=== PATIENT | female | born 1945 | race African-American/Black ===

== ENCOUNTER 2019-05-18 19:03 | Observation (INO) | payer MEDICARE, MEDICAID ==
[2019-05-18 19:28] VITALS: BMI 47.7
[2019-05-18] MEDS ORDERED: Ondansetron PF 4 MG/2 ML Vial IVP PRN (19:31)
[2019-05-18] MEDS ORDERED: Ondansetron ODT 4 MG TAB SL PRN (19:31)
[2019-05-18] MEDS ORDERED: Acetaminophen 325 MG TAB PO PRN (19:31)
--- NOTE | 2019-05-18 20:11 | PDOC.FPRHP ---
- Allergies/Adverse Reactions Allergies Allergy/AdvReac Type Severity Reaction Status Date / Time prednisone Allergy Intermediate Verified 06/26/15 03:13 aspirin Allergy Verified 06/26/15 03:13 rivaroxaban [From Xarelto] Allergy Verified 05/18/19 19:35 - Home Medications Medication Instructions Recorded Confirmed Type Metoprolol Succinate 25 mg PO DAILY 06/29/15 06/29/15 History Simvastatin 20 mg PO QPM 06/29/15 06/29/15 History Rivaroxaban [Xarelto] 15 mg PO BID #0 tab 06/30/15 Rx Rivaroxaban [Xarelto] 20 mg PO DAILY #0 tablet 06/30/15 Rx - History PMHx: PSHx: FHx: Social: - Vital signs BP: [] HR: [] RR: [] Tmax: [] Pox: []% on [] Wt: [] FMR H&P: Upper Level - Plan Date/Time: 05/18/192010 I, [], have evaluated this patient and agree with findings/plan as outlined by digital media intern resident. Pertinent changes/additions are listed here.
[2019-05-18] MEDS ORDERED: medroxyPROGESTERone Acetate 5 MG TAB PO SCH (21:00)
--- NOTE | 2019-05-18 21:55 | PDOC.FPRHP ---
- History of Present Illness Chief Complaint: vaginal bleeding History of Present Illness: 73 y/o F who presents from [facility] with vaginal bleeding. She cannot recall how long this has been going on. in [facility] ER she had a TVUS that revealed a thickened endometrial stripe and she was subsequently admitted here. Currently she feels fine, has no complaints, and I had to remind her that she had vaginal bleeding. [facility] is limited by her, I suspect dementia. - Allergies/Adverse Reactions Allergies Allergy/AdvReac Type Severity Reaction Status Date / Time prednisone Allergy Intermediate Verified 06/26/15 03:13 aspirin Allergy Verified 06/26/15 03:13 rivaroxaban [From Xarelto] Allergy Verified 05/18/19 19:35 - Home Medications Medication Instructions Recorded Confirmed Type Metoprolol Succinate 25 mg PO DAILY 06/29/15 06/29/15 History Simvastatin 20 mg PO QPM 06/29/15 06/29/15 History Rivaroxaban [Xarelto] 15 mg PO BID #0 tab 06/30/15 Rx Rivaroxaban [Xarelto] 20 mg PO DAILY #0 tablet 06/30/15 Rx - History PMHx: HTN, PE, morbid obesity, dyslipidemia, diastolic dysfunction, pulmonary hypertension PSHx: unable to complete FHx: does not recall Social: denies [employer], lives at [facility] - Review of Systems ROS unobtainable: due to mental status - Vital signs BP: 137/90 HR: 79 RR: 20 Tmax: 99 Pox: 96% on RA Wt: 126.28 kg - Physical Exam Constitutional: NAD, well developed HEENT: normocephalic and atraumatic, other (medially deviated left eye, no conj injection) Neck: supple, FROM Chest: no-tender to palpation Heart: RRR, no murmurs/rubs/gallops Lungs: CTAB, no respiratory distress, no wheezing Abdomen: soft, non-tender, other (obese) Musculoskeletal: normal structure, normal tone Neurological: no focal deficit, CN II-XII intact, normal sensation Skin: no rash/lesions, good turgor Heme/Lymphatic: no purpura, no petechia Psychiatric: normal mood and affect (very polite) FMR H&P: Results - Labs Lab results: labs reviewed from [facility] - Radiology Interpretation US - abdomen Status: report reviewed by me (Uterus 10x6x5 with 1.8 cm stripe suggestive of endometrial CA in postmenopausal woman) FMR H&P: A/P - Problem List (1) Postmenopausal bleeding Current Visit: Yes Status: Acute Code(s): N95.0 - POSTMENOPAUSAL BLEEDING (2) Endometrial thickening on ultrasound Current Visit: Yes Status: Acute Code(s): R93.89 - ABNORMAL FINDINGS ON DX IMAGING OF OTH BODY STRUCTURES (3) Hx of snf use of blood thinners Current Visit: Yes Status: Acute Code(s): Z92.29 - PERSONAL HISTORY OF OTHER DRUG THERAPY (4) Bilateral pulmonary embolism Current Visit: No Status: Acute Code(s): I26.99 - OTHER PULMONARY EMBOLISM WITHOUT ACUTE COR PULMONALE (5) Dyslipidemia Current Visit: No Status: Chronic Code(s): E78.5 - HYPERLIPIDEMIA, UNSPECIFIED (6) Hypertension Current Visit: No Status: Chronic Code(s): I10 - ESSENTIAL (PRIMARY) HYPERTENSION (7) Morbid obesity Current Visit: No Status: Chronic Code(s): E66.01 - MORBID (SEVERE) OBESITY DUE TO EXCESS CALORIES - 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 Gutiérrez as reported by ERMD -hold NOAC for now HTN/dyslipidemia -restart home meds DVT ppx with SCDs GI ppx with diet I discussed the need for an EMB, including r/b/a and she was able to provide consent. FMR H&P: Upper Level - Plan Date/Time: 05/18/19 9492 I, [], have evaluated this patient and agree with findings/plan as outlined by culinary internship resident. Pertinent changes/additions are listed here.
[2019-05-18] MEDS: Sodium Chloride 0.9% 1,000 ML IV SCH (21:59)
[2019-05-19 00:19] LABS: Hemoglobin 12.8 g/dL (12.0-16.0)
[2019-05-19] MEDS ORDERED: Acetaminophen 325 MG TAB PO PRN (02:45)
[2019-05-19] MEDS: Sodium Chloride 0.9% 1,000 ML IV SCH (04:23)
--- NOTE | 2019-05-19 05:41 | PDOC.FM ---
- Subjective Subjective: Pt doing well this morning, unsure of specifics but easily reoriented. States she thinks vaginal bleeding as stopped. No acute events overnight. Endorses chronic dry cough. Denies any CP, SOB, n/v, d/c, dizziness/lightheadedness, fever/chills. - Objective MAR Reviewed: Yes Vital Signs & Weight: Vital Signs (12 hours) Temp Pulse Resp BP Pulse Ox 05/19/19 04:56 98.4 F 82 20 143/85 H 94 L 05/19/19 01:01 98.3 F 76 18 133/81 97 05/18/19 19:26 99 F 79 20 137/90 96 Weight Weight 126.28 kg Result Diagrams: 05/19/19 08:10 05/19/19 08:10 Phys Exam - Physical Examination Constitutional: NAD (resting comfortably, obese) HEENT: PERRLA left ambylopia Neck: supple Respiratory: no wheezing, no rales, no rhonchi, clear to auscultation bilateral chronic dry cough Cardiovascular: RRR, no significant murmur, no rub Gastrointestinal: soft, non-tender, no distention, positive bowel sounds Musculoskeletal: no edema Neurological: moves all 4 limbs Psychiatric: A&O x 3 (and to situation) Dx/Plan (1) Endometrial thickening on ultrasound Code(s): R93.89 - ABNORMAL FINDINGS ON DX IMAGING OF OTH BODY STRUCTURES Status: Acute (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 VSS and Hb 12.8. AM Labs pending. - TVUS with thickened endometrial strip - Plan for EMBx this AM - Cont provera per Dr. 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 Will likely need close OP f/u. Anticipate hospitalization < 48 hrs pending clinical course. Addendum - Attending - Attending Attestation Date/Time: 05/19/19 1241 I personally evaluated the patient and discussed the management with the team. I agree with the History, Examination, Assessment and Plan documented above with any addition or exceptions noted below. Await managed services sales consultant consultation.
[2019-05-19] MEDS: Guaifenesin DM 100-10/5 ML UDCUP PO PRN ×2 (06:28→15:58)
[2019-05-19] MEDS: Benzonatate 100 MG CAP PO PRN ×2 (06:28→15:58)
[2019-05-19 08:46] LABS: Anion Gap 11 mmol/L (10-20); BUN (Urea Nitrogen) 8 mg/dL (9.8-20.1); Calc. Creatinine Clearance 105 mL/min (70-130); Calcium 8.8 mg/dL (7.8-10.44); Carbon Dioxide 29 mmol/L (23-31); Chloride 103 mmol/L (98-107); Estimated GFR-MDRD 70; Glucose 93 mg/dL (83-110); Potassium 3.8 mmol/L (3.5-5.1); Sodium 139 mmol/L (136-145)
[2019-05-19 08:47] LABS: #Eosinphils 0.4 thou/uL (0.0-0.7); #Lymphocytes 1.5 thou/uL (1.20-3.40); #Monocytes 0.6 thou/uL (0.11-0.59); #Neutrophils 4.8 thou/uL (1.40-6.50); %Basophils 0.1 % (0.0-1.0); %Lymphocytes 20.6 % (21.0-51.0); %Monocytes 8.4 % (0.0-10.0); %Neutrophils 64.9 % (42.0-75.0); Hemoglobin 12.5 g/dL (12.0-16.0); Mean Corpuscular HGB CONC 30.9 g/dL (32.0-36.0); Mean Corpuscular Hemoglobin 29.3 pg (27.0-31.0); Mean Platelet Volume 9.3 fL (7.4-10.4); Platelet Count 225 thou/uL (130-400); RBC Distribution Width 12.2 % (11.5-14.5); Red Blood Cell (RBC) Count 4.28 mill/uL (4.20-5.40); White Blood Cell (WBC) Count 7.3 thou/uL (4.8-10.8)
[2019-05-19] MEDS ORDERED: DULoxetine 60 MG CAP PO SCH (09:00)
[2019-05-19] MEDS ORDERED: Hydrochlorothiazide 25 MG TAB PO SCH (09:00)
[2019-05-19] MEDS ORDERED: medroxyPROGESTERone Acetate 5 MG TAB PO SCH (09:00)
[2019-05-19] MEDS ORDERED: Simvastatin 5 MG TAB PO SCH (09:00)
[2019-05-19] MEDS ORDERED: Donepezil HCl 10 MG TAB PO SCH (09:00)
[2019-05-19] MEDS ORDERED: Multivit, Therapeutic 1 TAB PO SCH (09:00)
[2019-05-19] MEDS ORDERED: Silver Nitrate Application 1 EACH ONE (11:39)
[2019-05-19 19:48] VITALS: BP 101/58; TEMP 98.6
--- NOTE | 2019-05-19 22:42 | CON ---
DATE OF CONSULTATION: CHIEF COMPLAINT: Vaginal bleeding. HISTORY OF PRESENT ILLNESS: This is a 73-year-old female, who came into the ER last night with concern for heavy vaginal bleeding and was found on ultrasound that she had a 10 x 6 x 5 uterus with a 1.8 cm endometrial stripe that is suggestive of endometrial cancer in postmenopausal women. She was then sent over for further evaluation. The primary team, which she was admitted to tried few times overnight to get an endometrial biopsy, but were unsuccessful, so at this time, we were consulted. The patient cannot provide the most accurate history as she has a history of underlying Alzheimer's dementia and her mental state kind of waxes and wanes. She seemed to be pretty alert today, reported bleeding and normal like her regular period. PAST MEDICAL HISTORY: Includes normocytic anemia, Alzheimer's dementia, hyperlipidemia, OA, depression, hypertension, anxiety, heart failure with preserved ejection fraction, and hypertension. PAST SURGICAL HISTORY: Unable to be obtained due to the patient's underlying dementia. FAMILY HISTORY: The patient does not recall. SOCIAL HISTORY: The patient lives at [facility]. Denies any smoking. Denies any alcohol use. Denies any history of illicit drug use. REVIEW OF SYSTEMS: The patient's review of systems is unable to obtain due to altered mental status. HOME MEDICATIONS: Include; 1. Metoprolol. 2. Simvastatin. 3. Xarelto. ALLERGIES: INCLUDE PREDNISONE, ASPIRIN, AND XARELTO. PHYSICAL EXAMINATION: VITAL SIGNS: Temperature 98.7, pulse is 68, respirations 17, O2 sats 97% on room air, blood pressure is 128/72. GENERAL: The patient is alert and oriented x2 this morning. She does report some bleeding. She does not appear to be in any acute distress. HEENT: Normocephalic and atraumatic. She does have a medially deviated left eye and has no conjunctivitis. NECK: Supple. Free range of motion. HEART: Regular rate and rhythm. No murmurs, rubs, or gallops. LUNGS: Clear to auscultation bilaterally. No respiratory distress. No wheezing. ABDOMEN: Soft, nontender. She is obese, but there are no masses or hernias noted. MUSCULOSKELETAL: Normal structure. Normal tone. Has free range of motion in all extremities bilaterally. NEUROLOGIC: No focal deficit noted. Has normal sensation and normal strength at this time. SKIN: No rash or lesions. Good turgor. HEME/LYMPH: No purpura. No petechiae. PSYCHIATRIC: The patient has normal mood and affect, but again she has underlying Alzheimer's dementia and is not quite aware of the current situation. LEAD NITRATE PROCESSOR: A speculum vaginal exam was performed to perform the endometrial biopsy. It would be noted that there was a large amount of pooling of blood and multiple blood clots during endometrial biopsy. ENDOMETRIAL BIOPSY: Verbal consent was obtained and a speculum was placed in the vagina. The cervix was visualized and grasped with a single toothed tenaculum. An endometrial pipelle was advanced to the fundus and sounded to about 8cm. The sampling was very difficult but three passes were made. A sample was collected but was primarily clot but a small amount of tissue was noted. The patient tolerated the procedure well without complications. LABORATORY DATA: White blood cell count 7.3, hemoglobin 12.5, hematocrit 40.6, platelet count 225. Chemistry; sodium was 139, potassium 3.8, chloride 103, carbon dioxide 29, anion gap 11, BUN 8, creatinine 0.94, GFR 70, glucose 93, calcium 8.8. I reviewed the ultrasound report from [facility] and it again showed a uterus 10 x 6 x 5 with 1.8 cm stripe suggestive of endometrial carcinoma in postmenopausal woman. ASSESSMENT: Abnormal uterine bleeding with concern for underlying cancer. PLAN: At this time, the patient's hemoglobin was reported to be 11 the night prior during her admission, and then this morning was up to 12. She did have some signs of active bleeding, but it was not heavy. I advised that she be watched for few more hours throughout the day. If she does not have any excessive bleeding and vital signs remained stable, we believe patient is safe to be discharged. She can follow up with [facility] in the next few days and we will await path results from the endometrial biopsy. Standard postprocedure care. Again advised to watch patient for few more hours and then can be discharged back to half-way on Provera from FINANCIAL SALES CONSULTANT hospitalist standpoint and follow up outpatient for further treatment of ongoing uterine disease. Job ID: [id number] MTDD
--- NOTE | 2019-05-20 08:16 | DIS ---
DATE OF ADMISSION: 05/18/2019 DATE OF DISCHARGE: 05/19/2019 RESIDENT: Laron Castellanos MD ADMITTING ATTENDING: Gatito Mancera MD DSICHARGE ATTENDING: Gatito Mancera MD CONSULTS: Gynecology, Dr. Hartley. PROCEDURES: 1. Transvaginal ultrasound at outside facility demonstrating thickened endometrial stripe. 2. Endometrial biopsy performed on 05/19/2019. PRIMARY DIAGNOSES: Postmenopausal bleeding with thickened endometrial stripe. SECONDARY DIAGNOSES: 1. Hypertension. 2. Hyperlipidemia. 3. Dementia. 4. Chronic cough. 5. History of pulmonary emboli. DISCHARGE MEDICATIONS: 1. Provera 20 mg p.o. b.i.d. 2. Toprol-XL 25 mg p.o. daily. 3. Aricept 10 mg p.o. daily. 4. Lactulose 15 mL p.o. daily p.r.n. 5. Lovastatin 20 mg p.o. daily. 6. Multivitamin one tablet p.o. daily. 7. Cymbalta 60 mg p.o. daily. 8. Hydrochlorothiazide 25 mg p.o. daily. 9. Namenda 10 mg p.o. daily. 10. Tylenol 325 mg two tablets p.o. q.6 hours p.r.n. 11. Robitussin DM 10 mL p.o. q.6 hours p.r.n. DISCONTINUED MEDICATIONS: Xarelto to be held until followup with [facility] early next week. HISTORY OF PRESENT ILLNESS AND HOSPITAL COURSE: The patient is a 73-year-old female, who presented from half-way with complaint of vaginal bleeding. The patient does have underlying dementia. This seems to wax and wane, and was a poor historian of her current symptoms. She initially presented to [facility], where she was found to have a thickened endometrial stripe on transvaginal ultrasound result and was optimally admitted here for further evaluation and management. The patient is on Xarelto for previous PEs, this was held during hospitalization. The patient's hemoglobin was trended and stable at 12. OB hospitalist was consulted, who recommended high dose of Depo-Provera as well as perform an endometrial biopsy. Endometrial biopsy was performed and the patient tolerated this well. Records were reviewed and transvaginal ultrasound demonstrated uterus that was 10 x 6 x 5 with a 1.8 cm endometrial stripe suggestive of endometrial cancer in postmenopausal woman. The patient will have a close followup appointment with [facility] within the next few days. For the patient's current medical conditions, her home medications were continued. At the time of discharge, the patient was doing well. Vaginal bleeding had tapered off somewhat. The patient's hemoglobin remained stable and the patient's vital signs were also stable. Discharge plan was discussed with the patient. She voiced agreement and understanding of this plan and instructions were given in the half-way for appropriate followup. The patient was discharged back to the half-way. DISPOSITION: Stable. DISCHARGE INSTRUCTIONS: 1. Location: long-term. 2. Diet: Heart healthy. 3. Activity: As tolerated. 4. Followup: The patient is to follow up with [facility] within the next few days as well as her primary care physician within 1 week. Job ID: [id number]
== END 2019-05-19 20:08 ==
LOC: T4-A 19:03 → INTOOBSV 19:03
PROVIDERS: ADMIT Emergency Medicine; ATTEND Emergency Medicine
PROC: 0UDB7ZX Extraction of Endometrium, Via Natural or Artificial Opening, Diagnostic (ICD-10-PCS; principal; 2019-05-19)
DX: N95.0 Postmenopausal bleeding (principal); R93.89 Abnormal findings on diagnostic imaging of other specified body structures; I11.0 Hypertensive heart disease with heart failure; I50.30 Unspecified diastolic (congestive) heart failure; E78.5 Hyperlipidemia, unspecified; G30.9 Alzheimer's disease, unspecified; F02.80 Dementia in other diseases classified elsewhere, unspecified severity, without behavioral disturbance, psychotic disturbance, mood disturbance, and anxiety; R05 Cough; I27.20 Pulmonary hypertension, unspecified; M19.90 Unspecified osteoarthritis, unspecified site; F32.9 Major depressive disorder, single episode, unspecified; F41.9 Anxiety disorder, unspecified; E66.01 Morbid (severe) obesity due to excess calories; Z68.42 Body mass index [BMI] 45.0-49.9, adult; Z86.711 Personal history of pulmonary embolism; Z79.899 Other long term (current) drug therapy; Z88.8 Allergy status to other drugs, medicaments and biological substances
CPT/HCPCS: 58100; 80048; 85014; 85018; 85025; 88305; 96360; 96361 ×2; G0378 ×2; 36415; 36416

== ENCOUNTER 2023-12-27 20:16 | Inpatient (IN) | payer MEDICARE, MEDICAID ==
[2023-12-27] MEDS ORDERED: Magnesium 2 GM/50 ML BAG (IN WATER) ONE (21:29)
[2023-12-27 21:59] LABS: ALT (SGPT) 133 U/L (8-55); AST (SGOT) 443 U/L (5-34); Albumin 2.5 g/dL (3.4-4.8); Alkaline Phosphatase 194 U/L (40-110); Anion Gap 23 mmol/L (10-20); BUN (Urea Nitrogen) 61 mg/dL (9.8-20.1); Bilirubin, Total 6.2 mg/dL (0.2-1.2); Calc. Creatinine Clearance 0 mL/min (70-130); Calcium 8.3 mg/dL (7.8-10.44); Carbon Dioxide 18 mmol/L (23-31); Chloride 100 mmol/L (98-107); Estimated GFR 8; Globulin 3.7 g/dL (2.4-3.5); Glucose 61 mg/dL (83-110); Magnesium 1.9 mg/dL (1.6-2.6); Potassium 4.7 mmol/L (3.5-5.1); Protein, Total 6.2 g/dL (5.8-8.1); Sodium 136 mmol/L (136-145)
[2023-12-27 22:07] LABS: INR-International Normal Ratio 1.4
[2023-12-27 22:08] LABS: Fibrinogen 687 mg/dL (253-463); PTT 24.8 sec (22.9-36.1)
[2023-12-27 22:25] LABS: Anisocytosis SLIGHT = 6-15 cells HPF (0-5); Band 2 % (5-11); Burr Cells MODERATE= 6-15 cells HPF (0-1); Dohle Bodies SLIGHT; Lymphocytes 4 % (21-51); Macrocytosis SLIGHT = 6-15 cells HPF (0-5); Monocytes 3 % (0-10); Neutrophil 91 % (42-75); Platelet Adequacy Comment Platelets Decreased; Poikilocytosis SLIGHT = 6-15 cells HPF (0-5); Polychromasia SLIGHT = 2-3 cells HPF (0-2); Target Cells SLIGHT = 2-5 cells HPF (0-1); Toxic Granulation SLIGHT; Vacuoles SLIGHT
[2023-12-27 22:55] LABS: Hematocrit 41.4 % (36.0-47.0); Mean Corpuscular HGB CONC 31.4 g/dL (32.0-36.0); Mean Corpuscular Hemoglobin 29.8 pg (27.0-31.0); Mean Platelet Volume 11.1 fL (7.4-10.4); Platelet Count 64 10x3/uL (130-400); RBC Distribution Width 14.6 % (11.5-14.5); Red Blood Cell (RBC) Count 4.36 mill/uL (4.20-5.40)
[2023-12-27 23:02] LABS: D-Dimer Test Greater than 20.00 mcg/mL (0.27-0.43)
[2023-12-27] MEDS ORDERED: Piperacillin/Tazobactam 3.375 GM VIAL ONE (23:04)
[2023-12-27] MEDS ORDERED: Sodium Chloride 0.9% 100 ML ONE (23:04)
[2023-12-27 23:11] LABS: Bacteria/HPF 2+ HPF (None Seen); Bilirubin 1+ (Negative); Blood, Urine 3+ (Negative); CAUTI Indications for Culture Pelvic or flank pain; Clarity Extra Turbid (Clear); Glucose, Urine (Dipstick) Normal (Negative); Ketone, Urine Negative (Negative); Leukocyte 500 Leu/uL (Negative); Nitrite Negative (Negative); Protein, Urine (Dipstick) 100 mg/dL (Neg-Trace); RBC/HPF Greater than 50 HPF (0-3); Specific Gravity, Urine 1.015 (1.002-1.036); WBC/HPF Greater than 50 HPF (0-3)
[2023-12-28 00:10] LABS: Actual Bicarbonate (HCO3v) 21.2 mEq/L (22-28); Base Excess -4.8 mEq/L (-2.0 to +3.0); Calcium, Ionized (venous) 0.98 mmol/L (1.16-1.32); Chloride (VBG) 98 mmol/L (98-106); Hematocrit-VBG 40 % (36.0-47.0); Hemoglobin (Hb) 13.7 g/dL (11.7-16.1); Potassium (VBG) 4.33 mmol/L (3.70-5.30); Sodium 136 mmol/L (133-146); pH (venous) 7.315 (7.32-7.43)
[2023-12-28 00:24] LABS: Lactic Acid 2.54 mmol/L (0.5-2.2)
[2023-12-28 00:55] LABS: Troponin I 0.482 ng/mL (< 0.028)
[2023-12-28 03:08] VITALS: BMI 43.6
[2023-12-28] MEDS ORDERED: Vancomycin Dose by Levels Sliding Scale (Wt > 99) FS SCH (03:30)
[2023-12-28] MEDS: Sodium Chloride 0.9% 1,000 ML IV SCH (03:55)
[2023-12-28] MEDS ORDERED: Bisacodyl 10 MG SUPP PR PRN (04:29)
[2023-12-28] MEDS: Dextrose 50% Abboject 50 ML SYRINGE ONE (04:45)
[2023-12-28 05:11] LABS: Hematocrit 36.1 % (36.0-47.0); Mean Corpuscular HGB CONC 33.2 g/dL (32.0-36.0); Mean Corpuscular Hemoglobin 29.5 pg (27.0-31.0); Mean Corpuscular Volume 88.7 fL (78.0-98.0); Mean Platelet Volume 12.7 fL (7.4-10.4); Platelet Count 60 10x3/uL (130-400); RBC Distribution Width 14.3 % (11.5-14.5); Red Blood Cell (RBC) Count 4.07 mill/uL (4.20-5.40)
[2023-12-28 05:14] LABS: ALT (SGPT) 118 U/L (8-55); AST (SGOT) 370 U/L (5-34); Albumin 2.3 g/dL (3.4-4.8); Alkaline Phosphatase 169 U/L (40-110); Anion Gap 18 mmol/L (10-20); BUN (Urea Nitrogen) 65 mg/dL (9.8-20.1); Bilirubin, Total 6.1 mg/dL (0.2-1.2); Calc. Creatinine Clearance 17 mL/min (70-130); Calcium 7.9 mg/dL (7.8-10.44); Carbon Dioxide 22 mmol/L (23-31); Chloride 101 mmol/L (98-107); Estimated GFR 8; Globulin 3.4 g/dL (2.4-3.5); Glucose 67 mg/dL (83-110); Lactic Acid 1.27 mmol/L (0.5-2.2); Potassium 4.2 mmol/L (3.5-5.1); Protein, Total 5.7 g/dL (5.8-8.1); Sodium 137 mmol/L (136-145)
[2023-12-28 05:34] LABS: Troponin I 0.494 ng/mL (< 0.028)
[2023-12-28 06:07] LABS: Anisocytosis SLIGHT = 6-15 cells HPF (0-5); Band 6 % (5-11); Burr Cells SLIGHT = 2-5 cells HPF (0-1); Dohle Bodies SLIGHT; Lymphocytes 1 % (21-51); Microcytosis SLIGHT = 6-15 cells HPF (0-5); Monocytes 3 % (0-10); Neutrophil 90 % (42-75); Ovalocytes SLIGHT = 2-5 cells HPF (0-1); Platelet Adequacy Comment Platelets Decreased; Polychromasia SLIGHT = 2-3 cells HPF (0-2); Target Cells SLIGHT = 2-5 cells HPF (0-1); Toxic Granulation SLIGHT; Vacuoles MODERATE
[2023-12-28] MEDS: Fleet Saline Enema 133 ML BOT PR SCH (07:02)
[2023-12-28] MEDS: Famotidine/PF 20 mg/2ml Vial SLOW IVP SCH (08:06)
[2023-12-28] MEDS: Cefepime 1 GM in Sodium Chloride 0.9% 100 ML IVPB SCH (15:10)
[2023-12-28 16:28] LABS: Creatinine, Urine 47.74 mg/dL (47-110)
[2023-12-28 20:09] LABS: Vancomycin, Trough 19.4 ug/mL
[2023-12-28] MEDS: Vancomycin HCl 750 MG in Sodium Chloride 0.9% 250 ML 250 ML IVPB SCH (22:03)
[2023-12-29 05:21] LABS: #Basophils 0.07 10x3/uL (0.0-0.2); %Basophils 0.5 % (0.0-1.0); %Eosinophils 1.4 % (0.0-10.0); %Lymphocytes 4.6 % (21.0-51.0); %Monocytes 5.4 % (0.0-10.0); %Neutrophils 84.9 % (42.0-75.0); Hematocrit 37.7 % (36.0-47.0); Hemoglobin 13.1 g/dL (12.0-16.0); Mean Corpuscular HGB CONC 34.7 g/dL (32.0-36.0); Mean Corpuscular Hemoglobin 29.8 pg (27.0-31.0); Mean Corpuscular Volume 85.9 fL (78.0-98.0); Mean Platelet Volume 13.2 fL (7.4-10.4); Platelet Count 58 10x3/uL (130-400); RBC Distribution Width 14.4 % (11.5-14.5); Red Blood Cell (RBC) Count 4.39 mill/uL (4.20-5.40)
[2023-12-29 05:33] LABS: ALT (SGPT) 101 U/L (8-55); AST (SGOT) 225 U/L (5-34); Alkaline Phosphatase 177 U/L (40-110); Anion Gap 16 mmol/L (10-20); BUN (Urea Nitrogen) 73 mg/dL (9.8-20.1); Calc. Creatinine Clearance 16 mL/min (70-130); Calcium 8.3 mg/dL (7.8-10.44); Carbon Dioxide 21 mmol/L (23-31); Chloride 105 mmol/L (98-107); Estimated GFR 7; Globulin 4.4 g/dL (2.4-3.5); Glucose 80 mg/dL (83-110); Potassium 3.8 mmol/L (3.5-5.1); Protein, Total 6.4 g/dL (5.8-8.1); Sodium 138 mmol/L (136-145)
[2023-12-29 15:10] LABS: ALT (SGPT) 85 U/L (8-55); AST (SGOT) 163 U/L (5-34); Albumin 1.8 g/dL (3.4-4.8); Alkaline Phosphatase 161 U/L (40-110); Anion Gap 16 mmol/L (10-20); BUN (Urea Nitrogen) 76 mg/dL (9.8-20.1); Bilirubin, Direct 4.1 mg/dL (0.1-0.3); Bilirubin, Total 5.1 mg/dL (0.2-1.2); Calc. Creatinine Clearance 16 mL/min (70-130); Carbon Dioxide 21 mmol/L (23-31); Chloride 107 mmol/L (98-107); Estimated GFR 8; Globulin 4.1 g/dL (2.4-3.5); Glucose 85 mg/dL (83-110); Potassium 3.9 mmol/L (3.5-5.1); Protein, Total 5.9 g/dL (5.8-8.1); Sodium 140 mmol/L (136-145)
[2023-12-30 05:40] LABS: ALT (SGPT) 71 U/L (8-55); AST (SGOT) 115 U/L (5-34); Albumin 1.7 g/dL (3.4-4.8); Alkaline Phosphatase 160 U/L (40-110); Anion Gap 17 mmol/L (10-20); BUN (Urea Nitrogen) 73 mg/dL (9.8-20.1); Bilirubin, Total 4.2 mg/dL (0.2-1.2); Calc. Creatinine Clearance 17 mL/min (70-130); Calcium 7.5 mg/dL (7.8-10.44); Carbon Dioxide 17 mmol/L (23-31); Chloride 112 mmol/L (98-107); Estimated GFR 8; Globulin 3.5 g/dL (2.4-3.5); Glucose 85 mg/dL (83-110); Potassium 4.8 mmol/L (3.5-5.1); Protein, Total 5.2 g/dL (5.8-8.1); Sodium 141 mmol/L (136-145)
[2023-12-30 06:44] LABS: Hematocrit 35.9 % (36.0-47.0); Mean Corpuscular HGB CONC 33.4 g/dL (32.0-36.0); Mean Corpuscular Hemoglobin 29.2 pg (27.0-31.0); Mean Corpuscular Volume 87.3 fL (78.0-98.0); Mean Platelet Volume 11.3 fL (7.4-10.4); Platelet Count 53 10x3/uL (130-400); RBC Distribution Width 14.5 % (11.5-14.5); Red Blood Cell (RBC) Count 4.11 mill/uL (4.20-5.40)
[2023-12-30 08:11] LABS: Band 5 % (5-11); Eosinophils 3 % (0-10); Lymphocytes 6 % (21-51); Monocytes 5 % (0-10); Neutrophil 78 % (42-75); Nucleated RBC (Manual Ct) 1 % (0); Platelet Adequacy Comment Significant Decrease; Poikilocytosis MODERATE=16-30 cells HPF (0-5); Reactive Lymphocytes 3 % (0-10)
[2023-12-30] MEDS: Albumin 25% 25 GM (100 mL) BOT IVPB SCH (12:13)
[2023-12-30 12:59] LABS: ANA Symphony (Qualitative) Negative (Negative); ANA Symphony (Quantitative) 0.4 Ratio (< 0.7 Negative); dsDNA IgG Antibody 2.5 IU/mL (<10 Negative)
[2023-12-30] MEDS ORDERED: Dextrose 5% in Water 1,000 ML IV PRN (15:00)
[2023-12-30] MEDS ORDERED: Dextrose 50% Abboject 50 ML SYRINGE SLOW IVP PRN (15:00)
[2023-12-30] MEDS ORDERED: Glucagon 1 MG/ML KIT IM PRN (15:00)
[2023-12-30 18:28] LABS: Anion Gap 17 mmol/L (10-20); BUN (Urea Nitrogen) 71 mg/dL (9.8-20.1); Calc. Creatinine Clearance 18 mL/min (70-130); Calcium 8.3 mg/dL (7.8-10.44); Carbon Dioxide 16 mmol/L (23-31); Chloride 111 mmol/L (98-107); Estimated GFR 9; Glucose 66 mg/dL (83-110); Potassium 5.2 mmol/L (3.5-5.1); Sodium 139 mmol/L (136-145)
[2023-12-31 06:13] LABS: Hematocrit 32.1 % (36.0-47.0); Hemoglobin 11.3 g/dL (12.0-16.0); Mean Corpuscular HGB CONC 35.2 g/dL (32.0-36.0); Mean Corpuscular Hemoglobin 29.4 pg (27.0-31.0); Mean Corpuscular Volume 83.6 fL (78.0-98.0); Mean Platelet Volume 12.6 fL (7.4-10.4); Platelet Count 65 10x3/uL (130-400); RBC Distribution Width 14.6 % (11.5-14.5); Red Blood Cell (RBC) Count 3.84 mill/uL (4.20-5.40)
[2023-12-31 06:40] LABS: Band 7 % (5-11); Burr Cells SLIGHT = 2-5 cells HPF (0-1); Eosinophils 3 % (0-10); Large Platelets 6.9 % (0-5); Lymphocytes 2 % (21-51); Monocytes 5 % (0-10); Myelocyte 2 % (0-0); Neutrophil 81 % (42-75); Nucleated RBC (Manual Ct) 1 % (0); Platelet Adequacy Comment Platelets Decreased; Smudge Cells 3.9 %; Target Cells SLIGHT = 2-5 cells HPF (0-1)
[2023-12-31 09:02] LABS: ALT (SGPT) 40 U/L (8-55); AST (SGOT) 51 U/L (5-34); Albumin 2.5 g/dL (3.4-4.8); Alkaline Phosphatase 125 U/L (40-110); Anion Gap 16 mmol/L (10-20); BUN (Urea Nitrogen) 71 mg/dL (9.8-20.1); Bilirubin, Total 3.7 mg/dL (0.2-1.2); Calc. Creatinine Clearance 19 mL/min (70-130); Calcium 8.4 mg/dL (7.8-10.44); Carbon Dioxide 17 mmol/L (23-31); Chloride 114 mmol/L (98-107); Estimated GFR 9; Globulin 3.1 g/dL (2.4-3.5); Glucose 75 mg/dL (83-110); Protein, Total 5.6 g/dL (5.8-8.1); Sodium 143 mmol/L (136-145)
[2023-12-31] MEDS: Sodium Bicarbonate 150 MEQ in Dextrose 5% in Water 1,000 ML IV SCH ×2 (10:13→12:08)
[2023-12-31] MEDS: Ondansetron PF 4 MG/2 ML Vial IVP PRN (10:24)
[2023-12-31 10:34] LABS: Anion Gap 15 mmol/L (10-20); BUN (Urea Nitrogen) 70 mg/dL (9.8-20.1); Calc. Creatinine Clearance 19 mL/min (70-130); Calcium 8.5 mg/dL (7.8-10.44); Carbon Dioxide 18 mmol/L (23-31); Chloride 113 mmol/L (98-107); Estimated GFR 9; Glucose 75 mg/dL (83-110); Potassium 3.9 mmol/L (3.5-5.1); Sodium 142 mmol/L (136-145)
[2023-12-31] MEDS: traMADol HCl 50 MG TAB PO PRN (12:06)
[2023-12-31] MEDS: Acetaminophen 325 MG TAB PO PRN (12:09)
[2024-01-01 05:34] LABS: Anion Gap 16 mmol/L (10-20); BUN (Urea Nitrogen) 70 mg/dL (9.8-20.1); Calc. Creatinine Clearance 19 mL/min (70-130); Calcium 8.2 mg/dL (7.8-10.44); Carbon Dioxide 22 mmol/L (23-31); Chloride 111 mmol/L (98-107); Estimated GFR 9; Glucose 98 mg/dL (83-110); Potassium 3.9 mmol/L (3.5-5.1); Sodium 145 mmol/L (136-145)
[2024-01-01] MEDS: DULoxetine 20 MG CAP PO SCH (09:24)
[2024-01-01] MEDS: Aspirin Chewable 81 MG TAB PO SCH (09:24)
[2024-01-01] MEDS: Sodium Chloride 0.45% 1,000 ML IV SCH (15:16)
[2024-01-02 07:25] LABS: Anion Gap 15 mmol/L (10-20); BUN (Urea Nitrogen) 67 mg/dL (9.8-20.1); Calc. Creatinine Clearance 21 mL/min (70-130); Calcium 8.2 mg/dL (7.8-10.44); Carbon Dioxide 22 mmol/L (23-31); Chloride 110 mmol/L (98-107); Estimated GFR 10; Glucose 93 mg/dL (83-110); Potassium 3.9 mmol/L (3.5-5.1); Sodium 143 mmol/L (136-145)
[2024-01-02 08:29] LABS: Hematocrit 31.5 % (36.0-47.0); Hemoglobin 11.4 g/dL (12.0-16.0); Mean Corpuscular HGB CONC 36.2 g/dL (32.0-36.0); Mean Corpuscular Hemoglobin 29.7 pg (27.0-31.0); Platelet Count 121 10x3/uL (130-400); RBC Distribution Width 14.2 % (11.5-14.5); Red Blood Cell (RBC) Count 3.84 mill/uL (4.20-5.40)
[2024-01-02 08:55] LABS: Band 2 % (5-11); Lymphocytes 1 % (21-51); Monocytes 3 % (0-10); Neutrophil 92 % (42-75); Platelet Adequacy Comment Platelets Decreased; RBC Morphology Within Normal Limits; Reactive Lymphocytes 2 % (0-10)
[2024-01-02] MEDS: cefTRIAXone\\ROCEPHIN 2 GM in Sodium Chloride 0.9% 100 ML IVPB SCH (15:56)
[2024-01-02 18:38] LABS: Glomerular Basmt Membrane ABS Less than 0.2 units (0.0-0.9)
[2024-01-03] MEDS: Dextrose 5 %-0.45 % NaCl 1,000 ML IV SCH (03:15)
[2024-01-03 08:02] LABS: Hematocrit 31.8 % (36.0-47.0); Mean Corpuscular HGB CONC 34.6 g/dL (32.0-36.0); Mean Corpuscular Hemoglobin 29.2 pg (27.0-31.0); Mean Corpuscular Volume 84.4 fL (78.0-98.0); Mean Platelet Volume 11.7 fL (7.4-10.4); Platelet Count 192 10x3/uL (130-400); RBC Distribution Width 14.9 % (11.5-14.5); Red Blood Cell (RBC) Count 3.77 mill/uL (4.20-5.40)
[2024-01-03 08:06] LABS: Anion Gap 13 mmol/L (10-20); BUN (Urea Nitrogen) 62 mg/dL (9.8-20.1); Calc. Creatinine Clearance 24 mL/min (70-130); Calcium 8.5 mg/dL (7.8-10.44); Carbon Dioxide 23 mmol/L (23-31); Chloride 110 mmol/L (98-107); Estimated GFR 11; Glucose 107 mg/dL (83-110); Potassium 3.8 mmol/L (3.5-5.1); Sodium 142 mmol/L (136-145)
[2024-01-03 08:34] LABS: Band 4 % (5-11); Eosinophils 4 % (0-10); Large Platelets 1.9 % (0-5); Lymphocytes 6 % (21-51); Monocytes 3 % (0-10); Neutrophil 82 % (42-75); Platelet Adequacy Comment Platelets Normal; RBC Morphology Within Normal Limits; Reactive Lymphocytes 2 % (0-10)
[2024-01-03 10:35] VITALS: BMI 47.7
[2024-01-03 15:15] LABS: Cytoplasmic (C-ANCA) <1:20 titer (Neg:<1:20); Myeloperoxidase AutoAbs <0.2 units (0.0-0.9); Perinuclear (P-ANCA) <1:20 titer (Neg:<1:20); Proteinase-3 AutoAbs Less than 0.2 units (0.0-0.9)
[2024-01-04 10:06] LABS: #Basophils 0.09 10x3/uL (0.0-0.2); %Basophils 0.4 % (0.0-1.0); %Eosinophils 1.5 % (0.0-10.0); %Monocytes 4.8 % (0.0-10.0); Hematocrit 30.5 % (36.0-47.0); Hemoglobin 10.7 g/dL (12.0-16.0); Mean Corpuscular HGB CONC 35.1 g/dL (32.0-36.0); Mean Corpuscular Hemoglobin 29.3 pg (27.0-31.0); Mean Corpuscular Volume 83.6 fL (78.0-98.0); Mean Platelet Volume 10.9 fL (7.4-10.4); Platelet Count 223 10x3/uL (130-400); RBC Distribution Width 14.6 % (11.5-14.5); Red Blood Cell (RBC) Count 3.65 mill/uL (4.20-5.40)
[2024-01-04 10:15] LABS: Anion Gap 12 mmol/L (10-20); BUN (Urea Nitrogen) 55 mg/dL (9.8-20.1); Calc. Creatinine Clearance 30 mL/min (70-130); Calcium 8.2 mg/dL (7.8-10.44); Carbon Dioxide 21 mmol/L (23-31); Chloride 114 mmol/L (98-107); Estimated GFR 15; Glucose 113 mg/dL (83-110); Potassium 3.7 mmol/L (3.5-5.1); Sodium 143 mmol/L (136-145)
[2024-01-05 05:09] LABS: #Basophils 0.06 10x3/uL (0.0-0.2); %Basophils 0.3 % (0.0-1.0); %Eosinophils 1.3 % (0.0-10.0); %Lymphocytes 9.4 % (21.0-51.0); %Neutrophils 80.5 % (42.0-75.0); Hematocrit 28.5 % (36.0-47.0); Hemoglobin 9.7 g/dL (12.0-16.0); Mean Corpuscular Hemoglobin 29.5 pg (27.0-31.0); Mean Corpuscular Volume 86.6 fL (78.0-98.0); Mean Platelet Volume 10.8 fL (7.4-10.4); Platelet Count 253 10x3/uL (130-400); RBC Distribution Width 15.3 % (11.5-14.5); Red Blood Cell (RBC) Count 3.29 mill/uL (4.20-5.40)
[2024-01-05 05:30] LABS: Anion Gap 11 mmol/L (10-20); BUN (Urea Nitrogen) 48 mg/dL (9.8-20.1); Calc. Creatinine Clearance 36 mL/min (70-130); Calcium 8.2 mg/dL (7.8-10.44); Carbon Dioxide 23 mmol/L (23-31); Chloride 114 mmol/L (98-107); Estimated GFR 18; Glucose 97 mg/dL (83-110); Potassium 3.5 mmol/L (3.5-5.1); Sodium 144 mmol/L (136-145)
[2024-01-05] MEDS: Potassium Chloride 20 MEQ TAB PO SCH (10:51)
[2024-01-06 05:35] LABS: #Basophils 0.09 10x3/uL (0.0-0.2); %Basophils 0.5 % (0.0-1.0); %Eosinophils 1.6 % (0.0-10.0); %Lymphocytes 12.2 % (21.0-51.0); %Monocytes 6.1 % (0.0-10.0); %Neutrophils 78.5 % (42.0-75.0); Hematocrit 32.4 % (36.0-47.0); Hemoglobin 10.8 g/dL (12.0-16.0); Mean Corpuscular HGB CONC 33.3 g/dL (32.0-36.0); Mean Corpuscular Hemoglobin 29.7 pg (27.0-31.0); Mean Platelet Volume 10.6 fL (7.4-10.4); Platelet Count 309 10x3/uL (130-400); RBC Distribution Width 15.7 % (11.5-14.5); Red Blood Cell (RBC) Count 3.64 mill/uL (4.20-5.40)
[2024-01-06 05:51] LABS: ALT (SGPT) 29 U/L (8-55); AST (SGOT) 47 U/L (5-34); Albumin 1.7 g/dL (3.4-4.8); Alkaline Phosphatase 175 U/L (40-110); Anion Gap 10 mmol/L (10-20); BUN (Urea Nitrogen) 39 mg/dL (9.8-20.1); Bilirubin, Total 1.7 mg/dL (0.2-1.2); Calc. Creatinine Clearance 46 mL/min (70-130); Calcium 8.3 mg/dL (7.8-10.44); Carbon Dioxide 21 mmol/L (23-31); Chloride 118 mmol/L (98-107); Estimated GFR 24; Globulin 4.5 g/dL (2.4-3.5); Glucose 85 mg/dL (83-110); Magnesium 1.7 mg/dL (1.6-2.6); Potassium 4.3 mmol/L (3.5-5.1); Protein, Total 6.2 g/dL (5.8-8.1); Sodium 145 mmol/L (136-145)
[2024-01-06] MEDS: Dextrose 5 %-0.45 % NaCl 1,000 ML IV SCH (09:53)
[2024-01-06 12:47] VITALS: BP 144/82; TEMP 98.2
== END 2024-01-06 17:05 | DRG 871 ==
LOC: ERS 20:16 → IMCU/EMU 12-28 00:32 → SURG B 12-30 00:09
PROVIDERS: ADMIT Hospitalist; ATTEND Internal Medicine
DX: A41.51 Sepsis due to Escherichia coli [E. coli] (principal); G93.41 Metabolic encephalopathy; N17.0 Acute kidney failure with tubular necrosis; N39.0 Urinary tract infection, site not specified; N18.4 Chronic kidney disease, stage 4 (severe); E87.20 Acidosis, unspecified; Z68.42 Body mass index [BMI] 45.0-49.9, adult; I13.0 Hypertensive heart and chronic kidney disease with heart failure and stage 1 through stage 4 chronic kidney disease, or unspecified chronic kidney disease; I50.32 Chronic diastolic (congestive) heart failure; F02.84 Dementia in other diseases classified elsewhere, unspecified severity, with anxiety; I24.89 Other forms of acute ischemic heart disease; E88.09 Other disorders of plasma-protein metabolism, not elsewhere classified; R65.20 Severe sepsis without septic shock; E16.2 Hypoglycemia, unspecified; E78.5 Hyperlipidemia, unspecified; D69.6 Thrombocytopenia, unspecified; G30.9 Alzheimer's disease, unspecified; M19.90 Unspecified osteoarthritis, unspecified site; E66.01 Morbid (severe) obesity due to excess calories; Z88.8 Allergy status to other drugs, medicaments and biological substances; Z86.711 Personal history of pulmonary embolism; Z79.899 Other long term (current) drug therapy; K21.9 Gastro-esophageal reflux disease without esophagitis; B96.1 Klebsiella pneumoniae [K. pneumoniae] as the cause of diseases classified elsewhere; Z88.6 Allergy status to analgesic agent; K56.41 Fecal impaction; A41.4 Sepsis due to anaerobes; E86.0 Dehydration
CPT/HCPCS: 36415; 36416; 51701; 51702; 70450; 71045; 71250; 74018; 74177; 76705; 76770; 80048; 80053; 80202; 80306; 80307; 81001; 82247; 82248; 82570; 82805; 83516; 83605; 83690; 83735; 83880; 84156; 84484; 85025; 85379; 85384; 85610; 85730; 86037; 86038; 86225; 87040; 87077; 87086; 87149; 87186; 93005; 93306; 93970; 96361; 96365; 96366; 96367; 96374; 96375; 97139; J0692; J0696; J2405; J2543; J3370; J3475; J3490; J7030; J7042; J7050; J7070; J7999; P9047

== ENCOUNTER 2024-02-05 10:54 | Emergency (ER) | payer MEDICARE, MEDICAID | END 2024-02-05 12:55 | LOC: ERS 10:54 | DX: S00.03XA Contusion of scalp, initial encounter (principal); W06.XXXA Fall from bed, initial encounter | CPT/HCPCS: 70450; 72125; 72170 ==